=== PATIENT | male | born 1980 ===

== ENCOUNTER 2017-02-18 19:12 | Emergency (ER) | payer SELFPAY ==
[2017-02-18 19:46] VITALS: BP 135/74; PULSE 84; RESP 18; TEMP 99.3; O2SAT 99
--- NOTE | 2017-02-18 20:36 | ED PDOC ---
HPI: CCC, URI, Sore Throat Time Seen by Provider: 02/18/17 20:20 Chief Complaint (Nursing): Cough, Cold, Congestion Chief Complaint (Provider): Cough History Per: Patient History/Exam Limitations: no limitations Onset/Duration Of Symptoms: Days (x 3) Current Symptoms Are (Timing): Still Present Associated Symptoms: Fever, Cough. denies: Nausea, Vomiting Additional Complaint(s): Jt is a 36 y/o male who presents to the ED with a nonproductive cough for the past 3 days and associated tactile fever. Patient took Robitussin with no relief, and denies nausea or vomiting. PMD: None Provided Past Medical History Reviewed: Historical Data, Nursing Documentation, Vital Signs Vital Signs: Last Vital Signs Temp 99.3 F 02/18/17 19:43 Pulse 84 02/18/17 19:43 Resp 18 02/18/17 19:43 BP 135/74 02/18/17 19:43 Pulse Ox 99 02/18/17 19:43 - Family History Family History: States: Unknown Family Hx - Home Medications Home Medications: Ambulatory Orders Medication Instructions Recorded Acetaminophen [Acetaminophen Extra 2 tab PO Q6 PRN #24 tablet 02/18/17 Strength] Albuterol HFA [Ventolin HFA 90 2 puff IH [id number] PRN #1 inh 02/18/17 mcg/actuation (8 g)] Promethazine/Codeine 5 ml PO Q12 PRN #100 ml 02/18/17 [Codeine/Promethazine 10 MG/5 Ml-6.25 MG/5 Ml] - Allergies Allergies/Adverse Reactions: Allergies Allergy/AdvReac Type Severity Reaction Status Date / Time No Known Allergies Allergy Verified 02/18/17 20:30 Review of Systems ROS Statement: Except As Marked, All Systems Reviewed And Found Negative Constitutional: Positive for: Fever Respiratory: Positive for: Cough Gastrointestinal: Negative for: Nausea, Vomiting Physical Exam - Reviewed Nursing Documentation Reviewed: Yes Vital Signs Reviewed: Yes - Physical Exam Appears: Positive for: Non-toxic, No Acute Distress Head Exam: Positive for: ATRAUMATIC, NORMAL INSPECTION, NORMOCEPHALIC Skin: Positive for: Normal Color, Warm, Dry ENT: Positive for: Normal ENT Inspection Neck: Positive for: Normal, Painless ROM, Supple Cardiovascular/Chest: Positive for: Regular Rate, Rhythm. Negative for: Gallop , Murmur Respiratory: Positive for: Normal Breath Sounds (clear to auscultation). Negative for: Wheezing, Respiratory Distress Extremity: Positive for: Normal ROM. Negative for: Pedal Edema, Deformity Neurologic/Psych: Positive for: Alert, Oriented - ECG O2 Sat by Pulse Oximetry: 99 (RA) Pulse Ox Interpretation: Normal Medical Decision Making Medical Decision Making: Scribe Attestation: Documented by Paul Irwin, acting as a scribe for Caridad Charles PA-C Provider Scribe Attestation: All medical record entries made by the Scribe were at my direction and personally dictated by me. I have reviewed the chart and agree that the record accurately reflects my personal performance of the history, physical exam, medical decision making, and the department course for this patient. I have also personally directed, reviewed, and agree with the discharge instructions and disposition. Disposition - Clinical Impression Clinical Impression: Cough - Disposition Condition: FAIR Prescriptions: Albuterol HFA [Ventolin HFA 90 mcg/actuation (8 g)] 2 puff IH [id number] PRN #1 inh PRN Reason: Cough Acetaminophen [Acetaminophen Extra Strength] 2 tab PO Q6 PRN #24 tablet PRN Reason: Pain, Moderate (4-7) Promethazine/Codeine [Codeine/Promethazine 10 MG/5 Ml-6.25 MG/5 Ml] 5 ml PO Q12 PRN #100 ml PRN Reason: Cough Instructions: Upper Respiratory Infection (ED) Forms: [employer] (Lao), [employer] (Albanian), [facility] ED School /Work Excuse Print Language: THAI
== END 2017-02-18 21:42 | disposition home or self-care (01) ==
LOC: H.ER 19:12
DX: R05 Cough (principal)